=== PATIENT | female | born 1990 ===

== ENCOUNTER 2024-08-23 08:07 | Day surgery (SDC) | payer OTHER ==
[2024-08-21 09:51] LABS: URINE APPEARANCE Clear; URINE BILIRRUBIN Negative (NEGATIVE); URINE BLOOD Negative; URINE COLOR Yellow; URINE GLUCOSE Negative (NEGATIVE); URINE KETONE Negative (NEGATIVE); URINE LEUKOCYTE Negative; URINE NITRATE Negative; URINE PROTEIN Negative (NEGATIVE); URINE UROBILINOGEN 0.2 E.U./dl
[2024-08-21 09:58] LABS: URINE BACTERIA 1030.5 uL (0.0-1933); URINE EPITHELIAL CELLS 59.6 uL (0.0-38.8); URINE RBC 10.3 uL (0.0-20.8)
[2024-08-21 10:15] LABS: BASO % 0.3 % (0.1-1.2); EOS # 0.21 (0.04-0.54); EOS % 1.5 % (0.7-7.0); HEMATOCRIT 39.9 % (34.1-44.9); HEMOGLOBIN 13.2 g/dL (11.2-15.7); LYMPH # 1.95 (1.18-3.74); MONO # 0.66 (0.24-0.82); MONO % 4.7 % (4.7-12.5); NEUT # 11.03 (1.56-6.13); PLATELET COUNT 213 K/uL (163-369); RED BLOOD COUNT 5.07 M/uL (3.93-5.22); RED CELL DISTRIBUTION WIDTH 13.7 % (11.6-14.4)
[2024-08-21 10:47] LABS: INR 0.97; PARTIAL THROMBOPLASTIN TIME 27.5 SECONDS (22.0-34.0); PROTHROMBIN TIME 10.6 SECONDS (9.0-11.5)
[2024-08-21 11:04] LABS: BILIRUBIN TOTAL 0.6 mg/dL (0.3-1.2); CALCIUM 8.9 mg/dL (8.5-10.1); CREATININE SERUM 0.68 mg/dL (0.55-1.02); GFR 98.46; GLOBULINA 3.5 G/DL (2.4-3.5); POTASSIUM 4.02 mEq/L (3.5-5.1); TOTAL PROTEIN 7.5 gm/dL (6.4-8.2); TSH 1.54 uIU/mL (0.358-3.74)
[2024-08-23] MEDS ORDERED: CEFOXITIN SODIUM 2,000 MG VIAL IV ONE (09:07)
[2024-08-23] MEDS ORDERED: POVIDONE-IODINE 118 ML BOTT TOP ONE ×2 (09:58→11:50)
[2024-08-23] MEDS ORDERED: CHLORHEXIDINE GLUCONATE 120 ML BOTTLE TOP ONE (11:53)
[2024-08-23] MEDS ORDERED: DOXYCYCLINE HY100 M2 PO (12:21)
[2024-08-23] MEDS ORDERED: NAPR500T14 PO (12:21)
[2024-08-23] MEDS ORDERED: MORPHINE SULFATE 4 MG/ML VIAL IV ONE (13:55)
== END 2024-08-23 17:25 | disposition home or self-care (01) ==
LOC: CIR.AMB 08:07
PROVIDERS: ATTEND Obstetrics & Gynecology
DX: O02.1 Missed abortion (principal)